=== PATIENT | male | born 1995 | race American Indian/Alaskan Native ===

== ENCOUNTER 2016-06-04 21:31 | Emergency (ER) | payer BC ==
[2016-06-04 21:53] VITALS: BP 127/74
[2016-06-05] MEDS ORDERED: NACL 0.9% IR ONE (01:38)
[2016-06-05] MEDS ORDERED: TRIPLE ANTIBIOTIC TP ONE (01:38)
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
== END 2016-06-05 02:28 | disposition home or self-care (01) ==
LOC: ED 21:31
DX: S51.812A Laceration without foreign body of left forearm, initial encounter (principal); F17.200 Nicotine dependence, unspecified, uncomplicated; W27.2XXA Contact with scissors, initial encounter; Y93.89 Activity, other specified; Y99.9 Unspecified external cause status; Y92.410 Unspecified street and highway as the place of occurrence of the external cause
CPT/HCPCS: 99283; A6250